=== PATIENT | male | born 1985 | race Asian ===

== ENCOUNTER 2024-04-11 18:13 | Emergency (ER) | payer OTHER ==
[~2024-04-11] VITALS: Ht 175.3 cm; Wt 77.1 kg
[2024-04-11 18:29] VITALS: BP 130/83; PULSE 90; RESP 18; TEMP 98.3; O2SAT 97
[2024-04-11] MEDS: IBUPROFEN 600 MG TAB PO ONE (19:40)
[2024-04-11] MEDS: BACITRACIN OINT 500 UNITS/GM PKT TP ONE (19:40)
[2024-04-11] MEDS: LIDOCAINE MPF 1% 10 MG/ML VIAL INJ ONE (19:40)
[2024-04-11 20:20] VITALS: BP 136/87; PULSE 87; RESP 18; TEMP 98.1; O2SAT 98
[2024-04-11] MEDS ORDERED: IBUP-2213 PO (20:31)
[2024-04-11] MEDS ORDERED: BACI-418 TP (20:31)
== END 2024-04-11 20:45 | disposition home or self-care (01) ==
LOC: MED 18:13
DX: S61.211A Laceration without foreign body of left index finger without damage to nail, initial encounter (principal); Z79.899 Other long term (current) drug therapy; W45.8XXA Other foreign body or object entering through skin, initial encounter; Y93.89 Activity, other specified; Y92.89 Other specified places as the place of occurrence of the external cause; Y99.8 Other external cause status
CPT/HCPCS: 12001; 90471; 90715; 99283; J2001